=== PATIENT | male | born 1995 | race Two or more races ===

== ENCOUNTER 2017-02-25 22:26 | Emergency (ER) | payer SELFPAY ==
[~2017-02-25] VITALS: Ht 188 cm; Wt 78.0 kg
[2017-02-25 23:06] LABS: HEMOGLOBIN 16.5 g/dL (13.7-18.0); WHITE BLOOD COUNT 12.4 x10^3/uL (4.5-13.2)
[2017-02-25 23:14] LABS: BLOOD UREA NITROGEN 16 mg/dL (7-18)
[2017-02-26 02:54] VITALS: BP 118/74
== END 2017-02-26 03:26 | disposition home or self-care (01) ==
LOC: EDBD 22:26 → ED 02-26 03:20
DX: S06.0X0A Concussion without loss of consciousness, initial encounter (principal); S00.81XA Abrasion of other part of head, initial encounter; G31.2 Degeneration of nervous system due to alcohol; F10.129 Alcohol abuse with intoxication, unspecified; W18.39XA Other fall on same level, initial encounter; Y93.89 Activity, other specified; Y92.038 Other place in apartment as the place of occurrence of the external cause; Y99.8 Other external cause status
CPT/HCPCS: 36415; 70450; 72125; 80048; 80307; 82040; 85025; 99285; G0479